=== PATIENT | female | born 1990 | race Caucasian/White ===

== ENCOUNTER 2019-06-29 06:34 | Outpatient (CLI) | payer OTHER, SELFPAY ==
--- NOTE | 2019-06-29 | ECHO_ITS ---
Patient Info Name: Deepika Quigley Age: 29 years : 1990 Gender: Female Ht: 62 in Wt: 216 lbs BSA: 2.12 m2 HR: 89 bpm BP: 116 / 83 mmHg Technical Quality: Good Exam Date: 06/29/2019 7:01 AM Exam Location: [facility] Pulmonary Patient Status: Outpatient Admit Date: 06/29/2019 Staff Ordering Physician: Demetris, Eder Hamilton MD Automobile Accessories Salesperson: Robby Monsalve, ALANA, RT Attending Provider: Demetris, Eder Hamilton MD Referring Physician: Demetris HEAD; Exam Type: CA echo doppler color flow Study Info Indications R07.9 - Chest pain, unspecified Complete two-dimensional, color flow and Doppler transthoracic echocardiogram is performed. Summary 1. Left ventricular chamber dimension is normal. 2. Left ventricular systolic function is normal, estimated at 60-65%. 3. The left ventricular diastolic function is normal. 4. E/e' 7 is not elevated. 5. Left atrial chamber dimension is mildly enlarged. 6. There is trace tricuspid valve regurgitation. Left Ventricle E/e' 7 is not elevated. Left ventricular chamber dimension is normal. Left ventricular systolic function is normal, estimated at 60-65%. The left ventricular diastolic function is normal. Right Ventricle Right ventricular chamber dimension is normal. Right ventricular systolic function is normal. Left Atria Left atrial chamber dimension is mildly enlarged. Right Atria Right atrial chamber dimension is normal. Aortic Valve The aortic valve is trileaflet. There is no aortic valve stenosis. There is no aortic valve regurgitation. Pulmonic Valve There is no pulmonic regurgitation. Mitral Valve There is no mitral valve stenosis. There is no mitral valve regurgitation. Tricuspid Valve There is trace tricuspid valve regurgitation. RVSP is not calculated due to an inadequate TR jet. Pericardium/Pleural There is no pericardial effusion. Inferior Vena Cava Normal inferior vena cava with >50% collapse upon inspiration consistent with normal right atrial pressure, 5 mmHg. Aorta The aortic root size at the sinus of Valsalva is normal. Left Ventricular Outflow Tract Name Value Normal LVOT 2D LVOT Diameter 2.2 cm LVOT Doppler LVOT Peak Gradient 3 mmHg LVOT Mean Gradient 2 mmHg LVOT VTI 19 cm LVOT VTI/AV VTI Ratio 0.9 LVOT Stroke Volume 75 ml LVOT CO 5.7 l/min LVOT CI 2.7 l/min/m2 Pulmonic Valve Name Value Normal PV Doppler PV Peak Gradient 6 mmHg Mitral Valve Name Value Normal
== END 2019-06-29 06:35 | disposition home or self-care (01) ==
PROVIDERS: PCP Internal Medicine; Visit Provider Internal Medicine
DX: R00.2 Palpitations (principal); R07.89 Other chest pain
CPT/HCPCS: 93306

== ENCOUNTER 2019-07-07 17:01 | Emergency (ER) | payer OTHER, SELFPAY ==
--- NOTE | ~2019-07-07 | CT_ITS ---
EXAMINATION: CT abdomen pelvis w con DATE: 07/07/2019 19:09 INDICATION: Lower abdominal pain. TECHNIQUE: Computed tomography (CT) of the abdomen and pelvis was performed with 100 mL Omnipaque-350 intravenous contrast. Automated exposure control and iterative reconstruction technique were employe d. The dose-length product was 990.61 mGy-cm. COMPARISON: None FINDINGS: Lung bases are clear. Heart size normal. No pericardial or pleural effusion. Liver, gallbladder, sple en, pancreas, bilateral adrenal glands and kidneys are normal. Bowels including the appendix are norm al. Bladder and anteverted uterus are normal. 3.1 cm left ovarian cyst/follicle. No free intraperiton eal gas or fluid. No pathologically enlarged abdominal or pelvic lymphadenopathy. Sacralized L5 segme nt. Bones are otherwise unremarkable. IMPRESSION: 1. Normal appendix. No acute intra-abdominal/pelvic process. 2. 3.1 cm left ovarian cyst/follicle. Reviewed, dictated and finalized at location A. PRESS JOGGER
[2019-07-07 17:08] VITALS: BP 134/72; PULSE 75; RESP 20; TEMP 36.2; O2SAT 98
[2019-07-07 17:24] LABS: Basophils Absolute Auto 0.1 K/mm3 (0.0-0.1); Basophils Percent Auto 0.4 % (0.2-1.2); Eosinophils Absolute Auto 0.4 K/mm3 (0-0.3); Eosinophils Percent Auto 2.9 % (0-4.4); Hemoglobin 13.6 g/dL (12.0-15.0); Immature Granulocyte Absolute 0.03 K/mm3 (0.00-0.031); Immature Granulocyte Percent A 0.2 % (0-0.5); Lymphocytes Percent Auto 20.4 % (18.3-44.2); Mean Corpuscular HGB Conc 32.4 g/dl (32-36); Mean Corpuscular Hemoglobin 28.2 pg (26-34); Mean Corpuscular Volume 87.1 fl (80-100); Mean Platelet Volume 9.2 fl (7.4-10.4); Monocytes Absolute Auto 0.5 K/mm3 (0.1-0.6); Monocytes Percent Auto 4.2 % (2.6-8.5); Neutrophils Absolute Auto 9.2 K/mm3 (1.3-6.7); Neutrophils Percent Auto 71.9 % (45.5-73.1); Platelet Count Result 385 k/mm3 (150-375); Red Blood Count 4.82 M/mm3 (4.2-5.4); Red Cell Distribution Width 12.9 % (11.5-14.5); White Blood Count 12.7 K/mm3 (4.5-10.0)
[2019-07-07 17:36] LABS: Alanine Aminotransferase 15 U/L (4-35); Albumin Level 4.8 g/dL (3.5-5.1); Alkaline Phosphatase 80 U/L (38-126); Aspartate Amino Transferase 19 U/L (14-36); Bilirubin,Total 0.3 mg/dL (0.2-1.3); Blood Urea Nitrogen 10 mg/dL (7-17); Calcium 9.6 mg/dL (8.4-10.2); Carbon Dioxide 24 mmol/L (22-30); Chloride 101 mmol/L (98-107); Estimated CRCL calculation 106 ml/min; Estimated Glomerular Filt Rate > 60; Glucose 92 mg/dL (65-105); Lipase 145 U/L (23-300); Potassium 3.8 mmol/L (3.4-5.0); Sodium 138 mmol/L (137-145)
[2019-07-07 17:38] LABS: Add Urine Microscopic? YES; Appearance Urine Clear (Clear); Bacteria Urine Trace /hpf; Bilirubin Urine Negative (Negative); Blood Urine Negative (Negative); Color Urine Yellow (Yellow); Glucose Urine UA Negative (Negative); Ketones Urine Trace mg/dL (Negative); Leukocyte Esterase Ur Negative LEU/UL (Negative); Mucus Urine Rare /lpf; Nitrate Urine Negative (Negative); Protein Urine Negative (Negative); Specific Grav Ur 1.025 (1.001-1.035); Squamous Epithelial Cell Urine Few /hpf (Few); WBC Urine 0-3 /hpf
--- NOTE | 2019-07-07 19:13 | ED.NAVMDI ---
HPI - Nausea/Vomiting/Diarrhea General Chief complaint: Nausea/Vomiting/Diarrhea Stated complaint: my ovaries feel like hell fire Time Seen by Provider: 07/07/19 18:12 Source: patient Mode of arrival: ambulatory Limitations: no limitations History of Present Illness HPI Narrative: Patient is a 29-year-old female who presents to emergency department for evaluation of tenderness to the lower abdomen for the last 2 days noting burning pain typically in the mornings that improves with activity. Patient also notes associated nausea. Patient notes slight white vaginal discharge with history of yeast infection she was just treated for patient denies any urinary symptoms Diarrhea vomiting rectal bleeding or melena. Patient has not taken anything for her symptoms other than some Zofran which did not help Related Data Allergies Allergy/AdvReac Type Severity Reaction Status Date / Time No Known Allergies Allergy Uncoded 03/17/19 12:03 Review of Systems Review of Systems: All systems reviewed & are unremarkable except as noted in HPI and below PMFSH Past Medical History Medical History (Updated 07/07/19 @ 19:40 by Anthony Abel PA-C) Anxiety Depression Surgical History Surgical History History of D&C Social History Social History (Updated 07/07/19 @ 19:14 by Anthony Abel PA-C) Smoking status: Never smoker Exam Narrative: Exam Narrative: GENERAL: Well-appearing, obese, and in no acute distress. HEAD: Normocephalic, atraumatic. EYES: PERRLA and EOMI. ENT: Nares clear, no rhinorrhea or epistaxis. Mucous membranes moist. Oropharynx without tonsillar hypertrophy exudate or other lesions. NECK: Supple. No adenopathy or masses. CHEST: Clear to auscultation. No respiratory distress. No wheezes rales or rhonchi HEART: Regular rate and rhythm. No murmur heard. Normal peripheral pulses. ABDOMEN: Soft, tenderness in the lower quadrants of the abdomen, nondistended EXTREMITIES: Normal range of motion. No edema. SKIN: Warm, dry, no rash. NEURO: No focal deficits. Alert and oriented x3. PSYCH: Normal mood and affect. Course Course Emergency Course: Patient in the room in no distress aware of case findings treatment plan and diagnosis agreeing to follow-up as directed Vital Signs Vital signs: Vital Signs Temperature 97.1 F L 07/07/19 17:08 Pulse Rate 75 07/07/19 17:08 Respiratory Rate 20 07/07/19 17:08 Blood Pressure 134/72 07/07/19 17:08 Pulse Oximetry 98 07/07/19 17:08 Temperature 97.1 F L 07/07/19 17:08 Pulse Rate 75 07/07/19 17:08 Respiratory Rate 20 07/07/19 17:08 Blood Pressure 134/72 07/07/19 17:08 Pulse Oximetry 98 07/07/19 17:08 MDM - Nausea/Vomiting/Diarrhea MDM Narrative Medical decision making narrative: Patient in the room in no distress with improvement of condition with medications felt appropriate for outpatient reevaluation with likely ovarian cyst as the etiology of her symptoms provided with reasons to return and felt appropriate for reevaluation by gynecology and primary care on an outpatient basis Lab Data Result diagrams: 07/07/19 17:18 07/07/19 17:18 Labs: Lab Results 07/07/19 07/07/19 07/07/19 Range/Units 17:18 17:18 17:26 WBC 12.7 H (4.5-10.0) K/mm3 RBC 4.82 (4.2-5.4) M/mm3 Hgb 13.6 (12.0-15.0) g/dL Hct 42.0 (37.0-47.0) % MCV 87.1 (80-100) fl MCH 28.2 (26-34) pg MCHC 32.4 (32-36) g/dl RDW 12.9 (11.5-14.5) % Plt Count 385 H (150-375) k/mm3 MPV 9.2 (7.4-10.4) fl Immature Gran % (Auto) 0.2 (0-0.5) % Neut % (Auto) 71.9 (45.5-73.1) % Lymph % (Auto) 20.4 (18.3-44.2) % Beltrami % (Auto) 4.2 (2.6-8.5) % Eos % (Auto) 2.9 (0-4.4) % Baso % (Auto) 0.4 (0.2-1.2) % Lymph # (Auto) 2.60 (0.9-3.2) K/mm3 Beltrami # (Auto) 0.5 (0.1-0.6) K/mm3 Eos # (Auto) 0.4 H (0-0.3) K/mm3 Baso # (
--- NOTE | 2019-07-07 19:17 | PC.NURSE ---
assumed care of pt at this time. received report from omer hand.
[2019-07-07] MEDS: ONDANSETRON INJ 4 MG/2 ML VIAL IV PUSH (19:24)
[2019-07-07] MEDS: FAMOTIDINE 20 MG/2 ML VIAL IV PUSH (19:25)
[2019-07-07] MEDS: SODIUM CHLORIDE 0.9% IV 1,000 ML 999 ML IV CONT (19:25)
[2019-07-07 19:29] VITALS: BP 142/77; PULSE 81; RESP 18; O2SAT 98
[2019-07-07] MEDS: IBUPROFEN IV 800 MG/200 ML 800 MG/200 ML BAG 400 MG IVPB (20:00)
[2019-07-07 20:34] VITALS: BP 132/82; PULSE 85; RESP 16; TEMP 36.9; O2SAT 99
== END 2019-07-07 20:36 | disposition home or self-care (01) ==
PROVIDERS: Emergency Medicine; Emergency Provider Emergency Medicine; PCP Internal Medicine
DX: R10.30 Lower abdominal pain, unspecified (principal); N83.202 Unspecified ovarian cyst, left side
CPT/HCPCS: 36415; 74177; 80053; 81001; 81025; 83690; 85025; 96365; 96367; 96375; 99284; J0131; J1741; J2405; J7030; Q9967

== ENCOUNTER 2023-01-12 10:51 | Outpatient (CLI) | payer OTHER, SELFPAY ==
[2023-01-12 18:40] LABS: Hemoglobin A1C 5.5 % (<5.7)
[2023-01-12 20:29] LABS: Free T4 Free Thyroxine 0.66 ng/mL (0.78-2.19)
== END 2023-01-12 10:52 | disposition home or self-care (01) ==
LOC: ANHWCLAB 10:52
PROVIDERS: PCP Physician Assistant Medical; Visit Provider Internal Medicine Endocrinology, Diabetes & Metabolism
DX: R76.8 Other specified abnormal immunological findings in serum (principal); R73.03 Prediabetes
CPT/HCPCS: 36415; 83036; 84439; 84443

== ENCOUNTER 2023-05-29 08:39 | Outpatient (CLI) | payer OTHER, SELFPAY ==
--- NOTE | ~2023-05-29 | US_ITS ---
EXAMINATION: US soft tissue head and neck DATE: 05/29/2023 08:53 INDICATION: Right neck mass. TECHNIQUE: Multiple grayscale and Doppler ultrasound images of the head and neck were obtained. COMPARISON: None FINDINGS: There is a normal lymph node in the patient's area of concern in right neck. IMPRESSION: 1. Normal lymph node in the patient's area of concern in right neck. Reviewed, dictated and finalized at location A. STITCH CLEANER
== END 2023-05-29 08:40 ==
PROVIDERS: PCP Nurse Practitioner Family; Visit Provider Nurse Practitioner Family
DX: R22.1 Localized swelling, mass and lump, neck (principal)
CPT/HCPCS: 76536

== ENCOUNTER 2023-06-05 08:34 | Outpatient (CLI) | payer OTHER, SELFPAY ==
[2023-06-05 09:45] LABS: Cortisol Baseline 4.38 ug/dL
== END 2023-06-05 08:35 | disposition home or self-care (01) ==
PROVIDERS: PCP Nurse Practitioner Family; Visit Provider Internal Medicine Endocrinology, Diabetes & Metabolism
DX: E03.8 Other specified hypothyroidism (principal)
CPT/HCPCS: 36415; 82533; 96372; J0834

== ENCOUNTER 2025-03-07 13:34 | Outpatient (CLI) | payer OTHER, SELFPAY ==
--- NOTE | 2025-03-07 13:38 | ECHO_ITS ---
Patient Info Name: Deepika Quigley Age: 35 years : 1990 Gender: Female Ht: 62 in Wt: 237 lbs BSA: 2.23 m2 HR: 77 bpm BP: 121 / 90 mmHg Heart Rhythm: Sinus Rhythm Technical Quality: Fair Exam Date: 03/07/2025 1:52 PM Patient Status: O Admit Date: 03/07/2025 Exam Type: CA echo doppler color flow Complete two-dimensional, color flow and Doppler transthoracic echocardiogram is performed. Electronic Wirer: Janae Molina Attending Provider: Charisse Lucas PAC Summary 1. Complete two-dimensional, color flow and Doppler transthoracic echocardiogram is performed. 2. Left ventricular chamber dimension is mildly enlarged. 3. Left ventricular systolic function is normal, estimated at 60-65. 4. The left ventricular diastolic function is grade II diastolic dysfunction. 5. E/e' 8 is minimally elevated. 6. Left atrial chamber dimension is mildly enlarged. 7. No pulmonary hypertension, estimated pulmonary arterial systolic pressure is 20 mmHg. Left Ventricle E/e' 8 is minimally elevated. Left ventricular chamber dimension is mildly enlarged. Left ventricular systolic function is normal, estimated at 60-65. The left ventricular diastolic function is grade II diastolic dysfunction. Right Ventricle Right ventricular chamber dimension is normal. Right ventricular systolic function is normal and with normal TAPSE 2.3 cm. Left Atria Left atrial chamber dimension is mildly enlarged. Right Atria Right atrial chamber dimension is normal. Aortic Valve The aortic valve is trileaflet. There is no aortic valve stenosis. There is no aortic valve regurgitation. Pulmonic Valve There is no pulmonic regurgitation. Mitral Valve There is no mitral valve stenosis. There is no mitral valve regurgitation. Tricuspid Valve There is no tricuspid valve regurgitation. No pulmonary hypertension, estimated pulmonary arterial systolic pressure is 20 mmHg. Pericardium/Pleural There is no pericardial effusion. Inferior Vena Cava Normal inferior vena cava with >50% collapse upon inspiration consistent with normal right atrial pressure, 5 mmHg. Aorta The aortic root size at the sinus of Valsalva is normal. Left Ventricular Outflow Tract Name Value Normal LVOT 2D LVOT Diameter 2.0 cm LVOT Doppler LVOT Peak Velocity 114 cm/s LVOT Peak Gradient 5 mmHg LVOT Mean Gradient 2 mmHg LVOT VTI 21 cm LVOT VTI/AV VTI Ratio 0.9 LVOT Stroke Volume 66 ml LVOT CO 4.5 l/min LVOT CI 2.0 l/min/m2 Pulmonic Valve Name Value Normal RVOT Doppler RVOT Peak Velocity 76 cm/s RVOT Peak Gradient 2 mmHg PV Doppler PV Peak Velocity 127 cm/s PV Peak Gradient 6 mmHg Mitral Valve Name Value Normal MV Diastolic Function MV E Peak Velocity 94 cm/s MV A Peak Velocity 68 cm/s MV E/A 1.4 MV Decel Time (PW) 203 ms MV Annular TDI MV E/e' (Septal) 11.4 MV E/e' (Lateral) 6.6 MV E/e' (Average) 9.0 Tricuspid Valve Name Value Normal TV Regurgitation Doppler TR Peak Velocity 195 cm/s TR Peak Gradient 15 mmHg Estimated PAP/RSVP RA Pressure 5 mmHg <=5 PA Systolic Pressure 20 mmHg <36 RV Systolic Pressure 20 mmHg <36 TV Annular TDI TV Lateral Sendy s' Velocity 11.0 cm/s >=9.5 Aorta Name Value Normal Ascending Aorta Ao Root Diameter (MM) 2.9 cm Ao Root Diam Index (MM) 1.3 cm/m2 Aortic Valve Name Value Normal AV Doppler AV Peak Velocity 126 cm/s AV Peak Gradient 6 mmHg AV Mean Gradient 3 mmHg AV VTI 23 cm AV Area (Cont Eq VTI) 2.8 cm2 >=3.0 AV Area (Cont Eq Yariel) 2.8 cm2 AV DI (Yariel) 0.91 AV Regurgitation 2D LVOT Area 3.1 cm2 Ventricles Name Value Normal LV Dimensions 2D/MM IVS Diastolic Thickness (2D) 0.7 cm 0.6-1.0 LVID Diastole (2D) 5.3 cm 3.8-5.2 LVIW Diastolic Thickness (2D) 0.7 cm 0.6-0.9 LVID Systole (2D) 3.3 cm 2.2-3.5 LVOT Diameter 2.0 cm LV Mass (2D Cubed) 134.97 g 67.00-162.00 LV Mass Index (2D Cubed) 61 g/m2 43-95 Relative Wall Thickness (2D) 0.27 <=0.42 LV Fractional Shortening/Ejection Fraction 2D/MM LV Fractional Shortening (2D) 38 % 27-45 LV EF (2D Teichholz) 68 % LV Diastolic Volume (4C MOD) 91 ml LV EF (4C MOD) 63 % LV Diastolic Volume (2C MOD) 92 ml LV EF (2C MOD) 71 % LV Diastolic Volume (BP MOD) 95 ml 46-106 LV Diastolic Volume Index (BP MOD) 42 ml/m2 29-61 LV Systolic Volume (BP MOD) 32 ml 14-42 LV Systolic Volume Index (BP MOD) 14 ml/m2 8-24 LV EF (BP MOD) 66 % 54-74 LV Diastolic Length (4C) 7.9 cm LV Systolic Length (4C) 6.6 cm LV Stroke Volume (4C MOD) 57 ml Atria Name Value Normal LA Dimensions LA Dimension (MM) 4.5 cm 2.7-3.8 LA Volume (4C A-L) 67 ml LA Volume (BP A-L) 63 ml RA Dimensions RA Area (4C) 13.0 cm2 <=18.0 Report Signatures
--- OUTSIDE RECORDS SUMMARY | 2025-03-07 14:30 | XMS_ITS | Clinical Summary ---
Author Organization [facility] Address [address] [place] [address] Care Team Providers Care Radio Communications Mechanician Name Role Phone Unavailable Primary Care Provider Unavailabl e Source Comments [facility],non-owned Affiliates and Associated Physician Practices is amultiple site organization consisting of ambulatory clinics and hospital sitesin [place], [place], [place] and [place]. This disclosure is being madepursuant to the Care Everywhere program and may not contain all information available regarding this patient. Last updated 18.[facility] Allergies No known active allergies Medications * Be aware that medications may not be up to date on this document. Alwaysverify current medications with the patient. ALPRAZolam (XANAX) 0.25 MG tablet Take 1 (one) tablet by mouth 2 times daily as needed anxiety 1 Active clonazePAM (KLONOPIN) 0.5 MG tablet Take 1 (one) tablet by mouth 2 times daily 2 Active sertraline (ZOLOFT) 100 MG tablet Take 1 (one) tablet by mouth every morning 1 Active solifenacin (Vesicare) 5 MG tablet Take 1 (one) tablet by mouth once daily 2 Active metFORMIN ER 24hr (Glucophage XR) 500 MG tablet Take 1 (one) tablet by mouth once daily 3 Active clotrimazole-be tamethasone (Lotrisone) 1-0.05 % cream APPLY TOPICALLY TO THE AFFECTED AREA TWICE DAILY FOR 4 WEEKS 2 Active cefdinir (Omnicef) 300 MG capsule Take 1 (one) capsule by mouth every 12 hours 2 Active Active Problems Problem Noted Date Diagnosed Date Obesity, morbid, BMI 40.0-49.9 03/23/2019 Polyhydramnios, antepartum complication 01/26/20 Obesity affecting , antepartum 01/26/20 Overview (01/25/2019): BMI 37 Anxiety and depression 01/25/2019 Overview (01/25/2019): On Celexa Encounters Date Type Department Care Team Description 02/24/2025 Travel from Last 3 Months Family History Medical History Relation Name Comments Cancer - Pancreatic Father None Known Maternal Grandfather None Known Maternal Grandmother Depression Mother Hyperlipidemia Paternal Grandfather Hypertension Paternal Grandfather CAD (Coronary Artery Disease) Paternal Grandmother Cancer - Breast Paternal Grandmother Cancer - Liver Paternal Grandmother Diabetes - Type 2 Paternal Grandmother Hyperlipidemia Paternal Grandmother Hypertension Paternal Grandmother Relation Name Status Comments Father Maternal Grandfather Other Maternal Grandmother Other Mother Alive Paternal Grandfather Alive Paternal Grandmother Social History Tobacco Use Types Packs/Day Years Used Date Smoking Tobacco: Never Smokeless Tobacco: Never Tobacco Cessation:Counseling Given: Not Answered Alcohol Use Standard Drinks/Week Comments Not Currently 0 (1 standard drink = 0.6 oz pur e alcohol) Comments No Sex and Gender Information Value Date Recorded Sex Assigned at Not on file Legal Sex Female 5:35 AM BALLISTIC EXPERT Gender Identity Not on file Sexual Orientation Not on file Occupation Industry Job Start Date Job End Date Not on file Not on file Not on file Not on file Computer Programmer Analyst Not on file Not on file Not on file Last Filed Vital Signs Vital Sign Reading Time Taken Comments Blood Pressure 126/82 07/01/2022 2:44 PM BALLISTIC EXPERT Pulse - - Temperature - - Respiratory Rate - - Oxygen Saturation - - Inhaled Oxygen Concentration - - Weight 117.9 kg (260 lb) 07/01/2022 2:44 PM BALLISTIC EXPERT Height 160 cm (5' 3) 07/01/2022 2:44 PM BALLISTIC EXPERT Body Mass Index 46.06 07/01/2022 2:44 PM BALLISTIC EXPERT Plan of Treatment Upcoming Encounters Date Type Department Care Team (Late st Contact Info) Description 04/04/2025 2:00 PM BALLISTIC EXPERT Office Visit [facility] - Urology [address] [place] [address] [place] [address] [facility] [address] [place] [address] 05/15/2025 3:30 PM BALLISTIC EXPERT Office Visit [facility] - SIZE PAINTER [address] [place] [address], [facility] [address] [place] [address] Alma Delia Hanson MD [address] [place] [address] [address] [place] [address] Health Maintenance Due Date Last Done Comments HIV SCREENING 01/10/2007 DTAP/TDAP/TD VACCINES (1 - Tdap) 01/10/2011 HEPATITIS B VACCINE (1 of 3 - 19+ 3-dose series) 01/10/2011 PAP SMEAR 01/10/2013 HPV VACCINE (1 - 3-dose SCDM series) 01/10/2019 DEPRESSION SCREENING 06/01/2024 COVID-19 VACCINE (1 - 2023-2 5 season) 2025 INFLUENZA VACCINE (#1) 2025 ZOSTER VACCINE (1 of 2) 01/10/2042 HEPATITIS C SCREENING Completed 07/23/2021 HIB VACCINE Aged Out No longer eligi ble based on patient's age to complete this topic MENINGOCOCCAL (Group B) VACC INE SHARED DECISION-MAKING Aged Out No longer eligibl e based on patient's age to complete this topic MENINGOCOCCAL GROUPS A/C/Y/W VACCINE Aged Out No longer eligible b ased on patient's age to complete this topic PNEUMOCOCCAL VACCINE Aged Out No long er eligible based on patient's age to complete this topic Insurance [facility] Address: [facility] [id number] [place] [address]
--- OUTSIDE RECORDS SUMMARY | 2025-03-07 14:30 | XMS_ITS | Patient Health Record ---
Author Organization [facility] Address [address] [place] [address] Care Team Providers Care Room Inspector Name Role Phone Sushma Dutta Unavailable [phone] Allergies No Known Allergies Reason For Referral No Information Medications Medication SIG (Take, Route, Frequency, Duration) Notes Start Date End Date Status ALPRAZolam 0.25 MG Tablet Oral 07/08/2023 Unknown clonazePAM 0.5 MG Tablet Oral 07/08/2023 Active Sertraline HCl 100 MG Tablet 1 tablet every morning Oral Once a day; Duration: 90 days Active traZODone HCl 50 MG Tablet 1 tablet at b edtime as needed Oral Once a day; Duration: 90 days Active Wellbutrin XL 150 MG Tablet Extended Release 24 Hour 1 tablet in the morning Orally Once a day; Duration: 30 days 01/12/2024 Active Social History Sex Assigned At : Social History Observation Description Sex Assigned At Female Social History Additional Details Category Social Info Options Details Migrated Social History Migrated Social History Alcohol Intake: None 06/24/2023,Tobacco Years: Former smoker 06/24/2023 Problems Problem Type SNOMED Code ICD Code Onset Dates Problem Status W/U Status Risk Notes Problem Severe recurrent major depression without psychotic features (03222927) Major depressive disorder, recurrent severe without psychotic features (F33.2) 07/08/19 Active confirmed Problem Generalized anxiety disorder (93979331) Generalized anxiety disorder (F41.1) 07/08/19 Active confirmed Problem Attention deficit hyperactivity disorder, combined type (01112989) Attention-deficit hyperactivity disorder, combined type (F90.2) 07/21/19 Active confirmed Plan Of Treatment No Information Insurance Providers Payer Name Payer Address Payer Phone Subscriber Number Group Number Insured Name Patient Relationship to Insured Coverage Start Date Coverage End Date [employer] Pos [employer] [address] [place] [address] [id number] DANYA BELL Self - patient is the insured Medical (General) History Medical History History ICD Code Problems: Attention deficit hyperactivit y disorder, combined type Generalized anxiety disorder Panic disorder Severe recurrent major depression withou t psychotic features , Surgical History Surgery Date(Month/Year) Other
--- OUTSIDE RECORDS SUMMARY | 2025-03-07 14:30 | XMS_ITS | Clinical Summary ---
Author Organization [facility] Address [address] [place] [address] Care Team Providers Care Elevator Constructor Name Role Phone Charisse Zavaleta Primary Care Provider Luisa Canotr MD Unavailable Allergies No known active allergies Medications buPROPion XL (Wellbutrin XL) 150 mg 24 hr tablet Take 1 tablet (150 mg total) by mouth every morning 30 tablet 11 4 04/21/20 25 Active albuterol HFA (PROVENTIL HFA,VENTOLIN HFA,PROAIR HFA) 90 mcg/actuation inhaler INHALE 1 TO 2 PUFFS BY MOUTH EVERY 4 TO 6 HOURS NEEDED FOR SHORTNESS OF BREATH OR WHEEZING 4 Active cholecalciferol (VITAMIN D-3) 50,000 unit capsule Take 1 capsule (50,000 Units total) by mouth once a week 4 Active clonazePAM (KlonoPIN) 0.5 mg tablet Take 1 tablet (0.5 mg total) by mouth daily Active omeprazole (PriLOSEC) 10 mg capsule Take 1 capsule (10 mg total) by mouth daily Active ondansetron (ZOFRAN) 8 mg tablet Take by mouth every 8 (eight) hours as needed Active sertraline (ZOLOFT) 100 mg tablet Take 1 tablet (100 mg total) by mouth every morning Active levothyroxine (SYNTHROID) 75 mcg tabletIndication s:Hypothyroidism , unspecified type Take 1 tablet (75 mcg total) by mouth used equipment sales representative before breakfast 90 tablet 1 5 Active Active Problems Problem Noted Date Diagnosed Date Posterior cervical lymphadenopathy 06/28/2024 Generalized anxiety disorder with panic attacks 04/21/2024 Mixed obsessional thoughts and acts 04/21/2024 Binge eating disorder 04/21/2024 Surgical History Surgery Date Site/Laterality Comments DILATION AND CURETTAGE OF UTERUS TYMPANOSTOMY TUBE PLACEMENT x 3 Medical History Medical History Date Comments Anxiety disorder anxiety Hx Other Medical ? IBS Neck mass Tonsil stone Allergic rhinitis Depression GERD (gastroesophageal reflux disease) Sinusitis Family History Medical History Relation Name Comments Other Father 2 Pancreatic Canc er; Heart failure Maternal Grandmother 2 Tom estive Heart Failure; Relation Name Status Comments Father 1 Alive Father 2 Maternal Grandmother 1 Alive Maternal Grandmother 2 Social History Tobacco Use Types Packs/Day Years Used Date Smoking Tobacco: Some Days Cigarettes Vaping Tobacco Cessation:Ready to Q uit: Not Asked; Counseling Given: Not Answered Alcohol Use Standard Drinks/Week Comments No 0 (1 standard drink = 0.6 oz pur e alcohol) AUDIT-C Answer Date Recorded Frequency of Alcohol Consumption Not on file 06/28/2024 Q2: How many drinks containi ng alcohol do you have on a typical day when you are drinking? Patient does not drink Frequency of Binge Drinking Not on file 06/02 Comments Unknown Sex and Gender Information Value Date Recorded Sex Assigned at Not on file Legal Sex Female 12:31 PM CDT Gender Identity Female 12/29/2023 1:05 PM CDT Sexual Orientation Straight 12/29/2023 1: 05 PM CDT Obstetrics History Last Filed Vital Signs Vital Sign Reading Time Taken Comments Blood Pressure 136/83 05/02/2024 10:10 AM WILL CALL ORDER CLERK Pulse 77 05/02/2024 10:10 AM WILL CALL ORDER CLERK Temperature - - Respiratory Rate 20 06/28/2024 12:5 5 PM WILL CALL ORDER CLERK Oxygen Saturation - - Inhaled Oxygen Concentration - - Weight 117.2 kg (258 lb 6.1 oz) 025 12:55 PM WILL CALL ORDER CLERK Height 157.5 cm (5' 2) 06/28/2024 12:5 5 PM WILL CALL ORDER CLERK Body Mass Index 47.26 06/28/2024 12:55 PM WILL CALL ORDER CLERK Plan of Treatment Health Maintenance Due Date Last Done Comments Cervical Cancer Screening 1990 Depression Screening 1990 Hepatitis C Screening 1990 Varicella Vaccines (1 of 2 - 13+ 2-dose series) 2004 Hepatitis B Screening 01/10/2010 Regular Well Visit/Exam 18-64 01/10/2010 Pneumococcal vaccine <65 (1 of 2 - PCV) 01/10/2011 HPV Vaccines (1 - 3-dose SCDM series) 01/10/2019 Influenza Vaccine (#1) 2025 DTaP/Tdap/Td Vaccine (2 - Td or Tdap) 02/28/2029 Insurance [facility] Care Teams Elevator Constructor Relationship Specialty Start Date End Date Charisse Zavaleta PA [address] [place] [address] PCP - General Family Practice 12/22/23 Luisa Cantor MD [address] [place] [address] 12/22/23
== END 2025-03-07 13:35 | disposition home or self-care (01) ==
PROVIDERS: PCP Physician Assistant Medical; Visit Provider Physician Assistant Medical
DX: I51.7 Cardiomegaly (principal)
CPT/HCPCS: 93306